=== PATIENT | male | born 1945 | race African-American/Black ===

== ENCOUNTER 2020-06-29 13:32 | Inpatient (IN) ==
[2020-06-29] MEDS ORDERED: SODIUM CHLORIDE 0.9% 2,000 ML IV STA (14:00)
[2020-06-29] MEDS ORDERED: ONDANSETRON 4 MG/2 ML VIAL IV STA (14:00)
[2020-06-29 15:28] LABS: Albumin 3.6 G/DL (3.4-5.0); Bilirubin,Total 0.4 MG/DL (0.2-1.0); Osmolality,Calculated 308.6 MOS/KG (273-304)
[2020-06-29 15:36] LABS: Basophils % 0.2 % (0.0-0.8); Hematocrit 50.5 VOL% (42.0-52.0); Hemoglobin 15.6 GM/DL (14.0-18.0); Immature Granulocytes % 0.3 %; Immature Granulocytes Absolute 0.02 #; Lymphocytes # 0.4 10*3/uL (1.4-4.0); Lymphocytes % 5.7 % (21.2-54.2); Mean Corpuscular HGB Conc 30.9 GM/DL (32-36); Mean Corpuscular Volume 92.5 FL (87-102); Mean Platelet Volume 9.6 FL (9.6-12.0); Monocytes % 6.2 % (1.7-12.7); Neutrophils % 87.6 % (38.7-73.9); Platelet Count 290 T/CUMM (130-400); Red Blood Count 5.46 MC/CUMM (3.8-5.5); Red Cell Distribution Width 14.1 % (9.3-17.3); White Blood Count 6.1 T/CUMM (4-12)
[2020-06-29] MEDS ORDERED: ACETAMINOPHEN 325 MG TABLET PO PRN (16:08)
[2020-06-29] MEDS ORDERED: DEXTROSE 50% 25 GM/50 ML VIAL IV PRN (16:08)
[2020-06-29] MEDS ORDERED: ZALEPLON 5 MG CAPSULE PO PRN (16:08)
[2020-06-29] MEDS ORDERED: ALBUTEROL 2.5 MG/3 ML NEB RESP TX PRN (16:08)
[2020-06-29] MEDS ORDERED: GLUCAGON 1 MG VIAL IM PRN (16:08)
[2020-06-29] MEDS ORDERED: ONDANSETRON 4 MG/2 ML VIAL IV PRN (16:08)
[2020-06-29] MEDS ORDERED: DOCUSATE SODIUM 100 MG CAPSULE PO PRN (16:08)
[2020-06-29] MEDS ORDERED: SODIUM CHLORIDE 0.9% 1,000 ML IV SCH (16:30)
[2020-06-29 16:49] LABS: Thyroid Stimulating Hormone 2.01 uIU/ml (0.358-3.74)
[2020-06-29 20:15] LABS: Amorphous Crystals,Urine Occasional /HPF (Few); Bilirubin,Urine Negative (Negative); Blood, Urine Negative (Negative); Glucose,Urine (UA) Negative (Negative); Hyaline Casts,Urine 6 /LPF (0-3); Ketones,Urine 5 mg/dL (Negative); Mucus,Urine Occasional /LPF (Occasional); Nitrite,Urine Negative (Negative); Protein,Urine 30 MG/DL; RBC,Urine <1 /HPF (0-4); Squamous Epithelial Cell,Urine Occasional /HPF (0-10); Urine Appearance CLEAR (Clear); Urine Color Yellow (Yellow); Urine Specific Gravity 1.024 (1.001-1.035); Urine Urobilinogen < 2.0 EU/DL (0.2-1.0); WBC,Urine 1 /HPF (0-6)
[2020-06-29] MEDS: FONDAPARINUX 2.5 MG/0.5 ML SYRINGE SUBCUT SCH (21:00)
[2020-06-30 04:47] LABS: Calcium 9.2 MG/DL (8.5-10.1); Osmolality,Calculated 303.3 MOS/KG (273-304); Potassium 4.1 MMOL/L (3.5-5.1)
[2020-06-30] MEDS: DEXTROSE 5% NACL 0.45% 1,000 ML IV SCH ×2 (12:54→21:06)
[2020-07-01] MEDS: DEXTROSE 5% NACL 0.45% 1,000 ML IV SCH ×3 (05:44→20:26)
[2020-07-01 06:56] LABS: Basophils % 0.4 % (0.0-0.8); Eosinophils % 0.4 % (0.00-10.9); Hematocrit 38.9 VOL% (42.0-52.0); Hemoglobin 12.6 GM/DL (14.0-18.0); Immature Granulocytes % 0.4 %; Immature Granulocytes Absolute 0.02 #; Lymphocytes # 0.7 10*3/uL (1.4-4.0); Lymphocytes % 12.9 % (21.2-54.2); Mean Corpuscular HGB Conc 32.4 GM/DL (32-36); Mean Corpuscular Volume 91.5 FL (87-102); Mean Platelet Volume 9.6 FL (9.6-12.0); Monocytes % 11.7 % (1.7-12.7); Neutrophils % 74.2 % (38.7-73.9); Platelet Count 175 T/CUMM (130-400); Red Blood Count 4.25 MC/CUMM (3.8-5.5); Red Cell Distribution Width 13.7 % (9.3-17.3); White Blood Count 5.3 T/CUMM (4-12)
[2020-07-01 07:31] LABS: Calcium 9.2 MG/DL (8.5-10.1); Osmolality,Calculated 294.6 MOS/KG (273-304); Potassium 3.4 MMOL/L (3.5-5.1)
[2020-07-01] MEDS ORDERED: POTASSIUM CHLORIDE RIDER 10 MEQ in PREMIX 1 EACH IV PRN (07:41)
[2020-07-01] MEDS: POTASSIUM CHLORIDE RIDER 10 MEQ in PREMIX 1 EACH IV PRN ×3 (08:15→13:54)
[2020-07-02 03:20] LABS: Basophils % 0.4 % (0.0-0.8); Eosinophils % 0.6 % (0.00-10.9); Hematocrit 39.9 VOL% (42.0-52.0); Hemoglobin 12.6 GM/DL (14.0-18.0); Immature Granulocytes % 0.4 %; Immature Granulocytes Absolute 0.02 #; Lymphocytes % 19.8 % (21.2-54.2); Mean Corpuscular HGB Conc 31.6 GM/DL (32-36); Mean Corpuscular Volume 91.7 FL (87-102); Monocytes % 12.4 % (1.7-12.7); Neutrophils % 66.4 % (38.7-73.9); Platelet Count 165 T/CUMM (130-400); Red Blood Count 4.35 MC/CUMM (3.8-5.5); Red Cell Distribution Width 13.2 % (9.3-17.3); White Blood Count 4.9 T/CUMM (4-12)
[2020-07-02 03:35] LABS: Calcium 8.7 MG/DL (8.5-10.1); Osmolality,Calculated 285.1 MOS/KG (273-304); Potassium 3.7 MMOL/L (3.5-5.1)
[2020-07-02] MEDS: DEXTROSE 5% NACL 0.45% 1,000 ML IV SCH ×3 (04:18→21:19)
[2020-07-02] MEDS: LACTATED RINGERS 1,000 ML IV SCH (08:20)
[2020-07-02] MEDS ORDERED: LIDOCAINE 2% 5 ML VIAL ONE (08:42)
[2020-07-02] MEDS ORDERED: propofoL 200 MG/20 ML VIAL IV ONE (08:42)
[2020-07-02] MEDS ORDERED: ETOMIDATE 20 MG/10 ML VIAL IV ONE (10:08)
[2020-07-03 05:35] LABS: Basophils % 0.2 % (0.0-0.8); Eosinophils # 0.1 10*3/uL (0.0-0.87); Eosinophils % 1.1 % (0.00-10.9); Hematocrit 38.5 VOL% (42.0-52.0); Hemoglobin 12.2 GM/DL (14.0-18.0); Immature Granulocytes % 0.2 %; Immature Granulocytes Absolute 0.01 #; Lymphocytes # 0.7 10*3/uL (1.4-4.0); Lymphocytes % 15.7 % (21.2-54.2); Mean Corpuscular HGB Conc 31.7 GM/DL (32-36); Mean Platelet Volume 9.9 FL (9.6-12.0); Monocytes % 10.4 % (1.7-12.7); Neutrophils % 72.4 % (38.7-73.9); Platelet Count 155 T/CUMM (130-400); Red Blood Count 4.23 MC/CUMM (3.8-5.5); Red Cell Distribution Width 13.1 % (9.3-17.3); White Blood Count 4.5 T/CUMM (4-12)
[2020-07-03 06:06] LABS: Albumin 2.3 G/DL (3.4-5.0); Bilirubin,Total 0.9 MG/DL (0.2-1.0); Calcium 8.5 MG/DL (8.5-10.1); Osmolality,Calculated 281.3 MOS/KG (273-304); Potassium 3.2 MMOL/L (3.5-5.1); Total Protein 5.4 G/DL (6.4-8.3)
[2020-07-03] MEDS: LACTATED RINGERS 1,000 ML IV SCH (09:00)
[2020-07-03] MEDS ORDERED: MAGNESIUM SULF RIDER 2 GM in PREMIX 1 EACH IV ONE (10:12)
[2020-07-03] MEDS ORDERED: propofoL 200 MG/20 ML VIAL IV ONE (11:27)
[2020-07-03] MEDS ORDERED: ETOMIDATE 20 MG/10 ML VIAL IV ONE (11:27)
[2020-07-03] MEDS ORDERED: GLYCOPYRROLATE 0.4 MG/2 ML VIAL ONE (11:27)
[2020-07-03] MEDS ORDERED: LIDOCAINE 2% 5 ML VIAL ONE (11:27)
[2020-07-03] MEDS: PANTOPRAZOLE 40 MG VIAL IV SCH ×2 (12:40→20:37)
[2020-07-03] MEDS: DEXTROSE 5% NACL 0.45% 1,000 ML IV SCH ×2 (13:03→23:17)
[2020-07-03] MEDS: POTASSIUM CHLORIDE RIDER 10 MEQ in PREMIX 1 EACH IV PRN ×5 (16:05→23:15)
[2020-07-03] MEDS: HEPARIN DRIP 25,000 UNITS/500 ML PREMIX IV SCH (17:37)
[2020-07-04] MEDS: POTASSIUM CHLORIDE RIDER 10 MEQ in PREMIX 1 EACH IV PRN ×3 (01:36→08:32)
[2020-07-04 05:30] LABS: Basophils % 0.1 % (0.0-0.8); Eosinophils % 0.3 % (0.00-10.9); Hematocrit 39.7 VOL% (42.0-52.0); Hemoglobin 13.1 GM/DL (14.0-18.0); Immature Granulocytes % 0.3 %; Immature Granulocytes Absolute 0.02 #; Lymphocytes # 0.5 10*3/uL (1.4-4.0); Lymphocytes % 7.5 % (21.2-54.2); Mean Corpuscular Volume 87.6 FL (87-102); Mean Platelet Volume 10.1 FL (9.6-12.0); Monocytes % 8.1 % (1.7-12.7); Neutrophils % 83.7 % (38.7-73.9); Platelet Count 176 T/CUMM (130-400); Red Blood Count 4.53 MC/CUMM (3.8-5.5); Red Cell Distribution Width 12.7 % (9.3-17.3); White Blood Count 6.7 T/CUMM (4-12)
[2020-07-04 05:50] LABS: Calcium 8.3 MG/DL (8.5-10.1); Osmolality,Calculated 265.2 MOS/KG (273-304); Potassium 3.7 MMOL/L (3.5-5.1)
[2020-07-04] MEDS: DEXTROSE 5% NACL 0.45% 1,000 ML IV SCH ×3 (06:17→21:18)
[2020-07-04] MEDS: PANTOPRAZOLE 40 MG VIAL IV SCH ×2 (08:24→20:45)
[2020-07-04] MEDS: LACTATED RINGERS 1,000 ML IV SCH (19:44)
[2020-07-04] MEDS: FONDAPARINUX 2.5 MG/0.5 ML SYRINGE SUBCUT SCH (21:18)
[2020-07-05] MEDS: DEXTROSE 5% NACL 0.45% 1,000 ML IV SCH ×3 (04:45→21:54)
[2020-07-05] MEDS: HEPARIN DRIP 25,000 UNITS/500 ML PREMIX IV SCH ×2 (06:27→16:24)
[2020-07-05] MEDS: PANTOPRAZOLE 40 MG VIAL IV SCH ×2 (09:01→20:41)
[2020-07-06 02:05] LABS: Basophils % 0.1 % (0.0-0.8); Eosinophils # 0.1 10*3/uL (0.0-0.87); Eosinophils % 1.9 % (0.00-10.9); Hematocrit 38.9 VOL% (42.0-52.0); Hemoglobin 12.6 GM/DL (14.0-18.0); Immature Granulocytes % 0.4 %; Immature Granulocytes Absolute 0.03 #; Lymphocytes # 0.6 10*3/uL (1.4-4.0); Lymphocytes % 8.6 % (21.2-54.2); Mean Corpuscular HGB Conc 32.4 GM/DL (32-36); Mean Corpuscular Volume 88.8 FL (87-102); Mean Platelet Volume 9.4 FL (9.6-12.0); Platelet Count 203 T/CUMM (130-400); Red Blood Count 4.38 MC/CUMM (3.8-5.5); Red Cell Distribution Width 12.8 % (9.3-17.3); White Blood Count 7.3 T/CUMM (4-12)
[2020-07-06 02:39] LABS: Calcium 8.1 MG/DL (8.5-10.1); Osmolality,Calculated 274.7 MOS/KG (273-304); Potassium 3.3 MMOL/L (3.5-5.1)
[2020-07-06] MEDS: DEXTROSE 5% NACL 0.45% 1,000 ML IV SCH ×3 (05:40→23:15)
[2020-07-06] MEDS: PANTOPRAZOLE 40 MG VIAL IV SCH ×2 (09:24→20:22)
[2020-07-06] MEDS: POTASSIUM CHLORIDE 20 MEQ TABLET PO PRN ×3 (09:24→14:04)
[2020-07-06] MEDS: HEPARIN DRIP 25,000 UNITS/500 ML PREMIX IV SCH (16:12)
[2020-07-07 05:49] LABS: Basophils % 0.4 % (0.0-0.8); Eosinophils # 0.3 10*3/uL (0.0-0.87); Eosinophils % 5.4 % (0.00-10.9); Hematocrit 36.8 VOL% (42.0-52.0); Hemoglobin 11.9 GM/DL (14.0-18.0); Immature Granulocytes % 0.4 %; Immature Granulocytes Absolute 0.02 #; Lymphocytes # 0.6 10*3/uL (1.4-4.0); Lymphocytes % 11.2 % (21.2-54.2); Mean Corpuscular HGB Conc 32.3 GM/DL (32-36); Mean Corpuscular Volume 89.3 FL (87-102); Mean Platelet Volume 9.2 FL (9.6-12.0); Monocytes % 14.6 % (1.7-12.7); Platelet Count 228 T/CUMM (130-400); Red Blood Count 4.12 MC/CUMM (3.8-5.5); Red Cell Distribution Width 13.1 % (9.3-17.3); White Blood Count 5.4 T/CUMM (4-12)
[2020-07-07 06:10] LABS: Calcium 8.2 MG/DL (8.5-10.1); Osmolality,Calculated 272.7 MOS/KG (273-304); Potassium 3.6 MMOL/L (3.5-5.1)
[2020-07-07] MEDS: PANTOPRAZOLE 40 MG VIAL IV SCH ×2 (08:31→20:17)
[2020-07-07] MEDS: DEXTROSE 5% NACL 0.45% 1,000 ML IV SCH ×3 (08:31→14:53)
[2020-07-07] MEDS: HEPARIN DRIP 25,000 UNITS/500 ML PREMIX IV SCH ×2 (10:15→14:53)
[2020-07-08 00:57] LABS: Basophils % 0.4 % (0.0-0.8); Eosinophils # 0.4 10*3/uL (0.0-0.87); Eosinophils % 6.5 % (0.00-10.9); Hematocrit 35.8 VOL% (42.0-52.0); Hemoglobin 11.4 GM/DL (14.0-18.0); Immature Granulocytes % 0.1 %; Immature Granulocytes Absolute 0.01 #; Lymphocytes # 0.9 10*3/uL (1.4-4.0); Lymphocytes % 13.9 % (21.2-54.2); Mean Corpuscular HGB Conc 31.8 GM/DL (32-36); Mean Corpuscular Volume 90.6 FL (87-102); Mean Platelet Volume 9.7 FL (9.6-12.0); Monocytes % 13.6 % (1.7-12.7); Neutrophils % 65.5 % (38.7-73.9); Platelet Count 250 T/CUMM (130-400); Red Blood Count 3.95 MC/CUMM (3.8-5.5); Red Cell Distribution Width 13.1 % (9.3-17.3); White Blood Count 6.8 T/CUMM (4-12)
[2020-07-08 01:02] LABS: Calcium 7.9 MG/DL (8.5-10.1); Osmolality,Calculated 273.7 MOS/KG (273-304); Potassium 3.6 MMOL/L (3.5-5.1)
[2020-07-08] MEDS: DEXTROSE 5% NACL 0.45% 1,000 ML IV SCH ×2 (02:48→16:34)
[2020-07-08] MEDS: PANTOPRAZOLE 40 MG VIAL IV SCH ×2 (10:25→20:22)
[2020-07-09] MEDS: DEXTROSE 5% NACL 0.45% 1,000 ML IV SCH ×5 (05:02→19:34)
[2020-07-09 05:23] LABS: Basophils % 0.5 % (0.0-0.8); Eosinophils # 0.3 10*3/uL (0.0-0.87); Eosinophils % 5.1 % (0.00-10.9); Hemoglobin 11.6 GM/DL (14.0-18.0); Immature Granulocytes % 0.4 %; Immature Granulocytes Absolute 0.02 #; Lymphocytes # 0.7 10*3/uL (1.4-4.0); Lymphocytes % 12.9 % (21.2-54.2); Mean Corpuscular HGB Conc 32.2 GM/DL (32-36); Mean Corpuscular Volume 89.3 FL (87-102); Mean Platelet Volume 8.8 FL (9.6-12.0); Monocytes % 14.4 % (1.7-12.7); Neutrophils % 66.7 % (38.7-73.9); Platelet Count 264 T/CUMM (130-400); Red Blood Count 4.03 MC/CUMM (3.8-5.5); Red Cell Distribution Width 13.4 % (9.3-17.3); White Blood Count 5.7 T/CUMM (4-12)
[2020-07-09 05:52] LABS: Bilirubin,Total 0.7 MG/DL (0.2-1.0); Calcium 8.5 MG/DL (8.5-10.1); Potassium 3.5 MMOL/L (3.5-5.1); Total Protein 5.5 G/DL (6.4-8.3)
[2020-07-09] MEDS: HEPARIN DRIP 25,000 UNITS/500 ML PREMIX IV SCH ×3 (07:56→15:14)
[2020-07-09] MEDS ORDERED: LACTATED RINGERS 1,000 ML IV SCH (08:00)
[2020-07-09] MEDS: PANTOPRAZOLE 40 MG VIAL IV SCH ×2 (08:52→21:14)
[2020-07-09] MEDS ORDERED: LIDOCAINE 2% 5 ML VIAL ONE (11:36)
[2020-07-09] MEDS ORDERED: propofoL 200 MG/20 ML VIAL IV ONE (11:36)
[2020-07-09] MEDS ORDERED: GLYCOPYRROLATE 0.4 MG/2 ML VIAL ONE (11:36)
[2020-07-09] MEDS ORDERED: ETOMIDATE 20 MG/10 ML VIAL IV ONE (11:36)
[2020-07-10 06:44] LABS: Basophils # 0.1 10*3/uL (0.0-0.2); Basophils % 0.8 % (0.0-0.8); Eosinophils # 0.3 10*3/uL (0.0-0.87); Eosinophils % 3.8 % (0.00-10.9); Hematocrit 34.8 VOL% (42.0-52.0); Hemoglobin 11.1 GM/DL (14.0-18.0); Immature Granulocytes % 0.6 %; Immature Granulocytes Absolute 0.04 #; Lymphocytes # 0.9 10*3/uL (1.4-4.0); Lymphocytes % 12.9 % (21.2-54.2); Mean Corpuscular HGB Conc 31.9 GM/DL (32-36); Mean Corpuscular Volume 90.4 FL (87-102); Mean Platelet Volume 9.2 FL (9.6-12.0); Monocytes % 12.4 % (1.7-12.7); Neutrophils % 69.5 % (38.7-73.9); Platelet Count 281 T/CUMM (130-400); Red Blood Count 3.85 MC/CUMM (3.8-5.5); Red Cell Distribution Width 13.7 % (9.3-17.3); White Blood Count 7.1 T/CUMM (4-12)
[2020-07-10 07:24] LABS: Calcium 8.5 MG/DL (8.5-10.1); Osmolality,Calculated 267.2 MOS/KG (273-304); Potassium 3.7 MMOL/L (3.5-5.1)
[2020-07-10] MEDS: PANTOPRAZOLE 40 MG VIAL IV SCH (09:27)
[2020-07-10] MEDS: DEXTROSE 5% NACL 0.45% 1,000 ML IV SCH (09:27)
[2020-07-10 11:23] VITALS: BP 145/89
[2020-07-10] MEDS ORDERED: PNEUMOCOCCAL VACCINE (13 VALENT) 0.5 ML SYRINGE IM ONE (12:09)
== END 2020-07-10 12:37 | disposition home or self-care (01) | DRG 326 ==
LOC: N.ED 13:32 → SUATTDRO 16:08 → INTOOBSV 16:08 → N.EDINP 16:08 → N.4E 18:10 → SUATTDRO 07-01 18:04
PROVIDERS: ADMIT Family Medicine; ATTEND Internal Medicine

== ENCOUNTER 2020-08-25 21:30 | Inpatient (IN) ==
[2020-08-25] MEDS ORDERED: LACTATED RINGERS 1,000 ML IV ONE ×2 (22:00→23:29)
[2020-08-25] MEDS ORDERED: CLINDAMYCIN INJ 600 MG in PREMIX 1 EACH IV STA (22:13)
[2020-08-25] MEDS ORDERED: PIPERACILLIN/TAZOBACTAM 3,375 MG in SODIUM CHLORIDE 0.9% 100 ML IV STA (22:13)
[2020-08-25] MEDS ORDERED: SODIUM CHLORIDE 0.9% 1,000 ML IV STA (22:13)
[2020-08-25 22:28] LABS: Hematocrit 39.2 VOL% (42.0-52.0); Hemoglobin 12.4 GM/DL (14.0-18.0); Lymphocytes # 0.4 10*3/uL (1.4-4.0); Lymphocytes % 45.3 % (21.2-54.2); Mean Corpuscular HGB Conc 31.6 GM/DL (32-36); Mean Corpuscular Volume 90.5 FL (87-102); Mean Platelet Volume 10.1 FL (9.6-12.0); Monocytes % 1.2 % (1.7-12.7); Neutrophils % 53.5 % (38.7-73.9); Platelet Count 102 T/CUMM (130-400); Red Blood Count 4.33 MC/CUMM (3.8-5.5); Red Cell Distribution Width 15.1 % (9.3-17.3)
[2020-08-25 22:29] LABS: White Blood Count 0.9 T/CUMM (4-12)
[2020-08-25 22:33] LABS: INR 2.3
[2020-08-25 22:36] LABS: Alanine Aminotransferase 353 U/L (16-61); Albumin 1.6 G/DL (3.4-5.0); Alkaline Phosphatase 386 U/L (45-117); Aspartate Amino Transferase 626 U/L (0-37); Blood Urea Nitrogen 64 MG/DL (7-18); Calcium 8.6 MG/DL (8.5-10.1); Carbon Dioxide 29 MMOL/L (21-32); Estimated Glom Filtration Rate 83 ML/MIN; Osmolality,Calculated 295.3 MOS/KG (273-304); Potassium 4.6 MMOL/L (3.5-5.1); Sodium 141 MMOL/L (136-145); Total Protein 4.7 G/DL (6.4-8.2)
[2020-08-25] MEDS ORDERED: PIPERACILLIN/TAZOBACTAM 3,375 MG VIAL IV ONE (22:36)
[2020-08-25 22:43] LABS: Troponin I 0.055 NG/ML (0.00-0.045)
[2020-08-25 22:46] LABS: PT Patient Result 23.6 SECS (9.8-11.9)
[2020-08-25 22:48] LABS: Glucose 47 MG/DL (74-106)
[2020-08-25 22:52] LABS: ABG Base Excess -0.5 MMOL/L (-2.5-2.5); ABG Oxygen Saturation 97.5 % (95-100); ABG TCO2 28.5 MMOL/L (23-27); Allen Test Positive; Pt O2 Delivery Device Ventilator
[2020-08-25 23:03] LABS: ABG PCO2 83.4 MM HG (35-48); ABG PH 7.175 (7.35-7.45)
[2020-08-25 23:12] LABS: Amorphous Crystals,Urine Occasional /HPF (Few); Bilirubin,Urine Negative (Negative); Blood, Urine Negative (Negative); Glucose,Urine (UA) Negative (Negative); Hyaline Casts,Urine 61 /LPF (0-3); Ketones,Urine Negative (Negative); Mucus,Urine Many /LPF (Occasional); Nitrite,Urine Negative (Negative); Protein,Urine Negative; RBC,Urine 5 /HPF (0-4); Urine Appearance CLOUDY (Clear); Urine Color Amber (Yellow)
[2020-08-25 23:21] LABS: Barbiturates Screen,Urine Negative (Negative); Benzodiazepines Screen,Urine Negative (Negative); Cannabinoid Screen,Urine Negative (Negative); Opiate Screen,Urine Negative (Negative); Phencyclidine Screen,Urine Negative (Negative)
[2020-08-25] MEDS ORDERED: SODIUM CHLORIDE 0.9% 1,000 ML IV ONE ×2 (23:25→23:28)
[2020-08-25 23:29] LABS: Band Neutrophils 10 % (0-10); Hypochromasia Slight; Lymphocytes 67 % (20-55); Microcytosis 1+; Nucleated Red Blood Cells 1 (0-5); Platelet Estimate Normal; Segmented Neutrophils 23 % (50-85); Total Cells Counted 100
[2020-08-25 23:30] LABS: Target Cells Few
[2020-08-25 23:31] LABS: Anisocytosis Slight
[2020-08-25] MEDS ORDERED: ALBUTEROL 2.5 MG/3 ML NEB RESP TX PRN (23:31)
[2020-08-25] MEDS ORDERED: MIDAZOLAM 100 MG in SODIUM CHLORIDE 0.9% 80 ML IV PRN (23:31)
[2020-08-25] MEDS ORDERED: PANTOPRAZOLE 40 MG VIAL IV SCH (23:45)
[2020-08-26] MEDS ORDERED: GLUCAGON 1 MG VIAL IM PRN (00:26)
[2020-08-26] MEDS ORDERED: DEXTROSE 50% 25 GM/50 ML VIAL IV PRN (00:26)
[2020-08-26] MEDS: NOREPINEPHRINE 8 MG in SODIUM CHLORIDE 0.9% 242 ML IV PRN ×6 (01:05→18:45)
[2020-08-26 01:16] LABS: Troponin I 0.072 NG/ML (0.00-0.045)
[2020-08-26] MEDS ORDERED: VECURONIUM 10 MG VIAL IV ONE (01:47)
[2020-08-26 02:50] LABS: Hematocrit 31.8 VOL% (42.0-52.0); Lymphocytes # 0.1 10*3/uL (1.4-4.0); Lymphocytes % 24.1 % (21.2-54.2); Mean Corpuscular HGB Conc 31.4 GM/DL (32-36); Mean Corpuscular Volume 91.4 FL (87-102); Mean Platelet Volume 11.4 FL (9.6-12.0); Monocytes % 3.4 % (1.7-12.7); Neutrophils % 72.5 % (38.7-73.9); Platelet Count 75 T/CUMM (130-400); Red Blood Count 3.48 MC/CUMM (3.8-5.5); Red Cell Distribution Width 15.2 % (9.3-17.3)
[2020-08-26 02:52] LABS: White Blood Count 0.6 T/CUMM (4-12)
[2020-08-26 03:17] LABS: CKMB % 2.3 %
[2020-08-26 03:18] LABS: Troponin I 0.068 NG/ML (0.00-0.045)
[2020-08-26 03:41] LABS: Albumin 1.2 G/DL (3.4-5.0); Bilirubin,Total 0.5 MG/DL (0.2-1.0); Osmolality,Calculated 294.4 MOS/KG (273-304); Potassium 4.4 MMOL/L (3.5-5.1); Total Protein 3.6 G/DL (6.4-8.2)
[2020-08-26 03:46] LABS: Band Neutrophils 21 % (0-10); Lymphocytes 29 % (20-55); Platelet Estimate Decreased; Segmented Neutrophils 50 % (50-85); Total Cells Counted 100
[2020-08-26] MEDS ORDERED: SODIUM CHLORIDE 0.9% 500 ML IV ONE ×2 (03:48→04:53)
[2020-08-26 03:53] LABS: Anisocytosis 1+; Hypochromasia Slight; Microcytosis Slight
[2020-08-26 03:54] LABS: Polychromasia Slight
[2020-08-26] MEDS: SODIUM CHLORIDE 0.9% 1,000 ML IV SCH ×3 (04:30→17:05)
[2020-08-26 04:39] LABS: ABG Base Excess 0.9 MMOL/L (-2.5-2.5); ABG HCO3 25.4 MMOL/L (20-26); ABG Oxygen Saturation 90.9 % (95-100); ABG PCO2 40.4 MM HG (35-48); ABG PH 7.417 (7.35-7.45); ABG PO2 66.1 MM HG (80-95); ABG TCO2 26.7 MMOL/L (23-27); Allen Test Positive; Pt O2 Delivery Device Ventilator
[2020-08-26] MEDS ORDERED: PIPERACILLIN/TAZOBACTAM 3,375 MG in SODIUM CHLORIDE 0.9% 100 ML IV SCH (06:00)
[2020-08-26] MEDS ORDERED: ASPIRIN 325 MG TABLET PO ONE (06:02)
[2020-08-26 07:15] LABS: CKMB % 1.9 %; Troponin I 0.083 NG/ML (0.00-0.045)
[2020-08-26] MEDS: PHENYLEPHRINE DRIP 40 MG/250 ML PREMIX IV PRN ×5 (08:00→19:55)
[2020-08-26] MEDS: MEROPENEM 500 MG in SODIUM CHLORIDE 0.9% 100 ML IV SCH ×2 (08:30→14:30)
[2020-08-26] MEDS: HYDROCORTISONE 100 MG VIAL IV SCH ×2 (08:35→13:30)
[2020-08-26] MEDS ORDERED: FILGRASTIM-SNDZ 300 MCG/0.5 ML SYRINGE SUBCUT SCH (09:00)
[2020-08-26] MEDS ORDERED: FLUDROCORTISONE 0.1 MG TABLET PER TUBE SCH (09:00)
[2020-08-26] MEDS ORDERED: APIXABAN 5 MG TABLET PO SCH (09:00)
[2020-08-26] MEDS ORDERED: LEVOFLOXACIN INJ 500 MG in PREMIX 1 EACH IV SCH (09:00)
[2020-08-26 18:50] VITALS: BP 27/20
[2020-08-27] MEDS ORDERED: ASPIRIN CHEW 81 MG TABLET PO SCH (09:00)
== END 2020-08-26 20:30 | disposition expired | DRG 871 ==
LOC: EDBD → EDUNIT# → N.ED 21:30 → SUATTDRO 23:31 → N.EDINP 23:31 → N.ICU 08-26 00:02
PROVIDERS: ADMIT Internal Medicine; ATTEND Internal Medicine